=== PATIENT | female | born 1935 | race Two or more races ===

== ENCOUNTER → 2016-12-22 10:53 | Emergency (ER) | payer MEDICARE ==
[~2016-12-22 10:53] MED LIST: Albuterol/Ipratropium NEB.SOL* Albuterol 2.5 MG/Ipratropium 0.5 MG 3 ML INH ONE; Aspirin Low Dose CHEW TAB* 81 MG PO ONE; Iohexol 350* (CONTRAST) 500 ML MDV IV ONE; NS 0.9% 1000 ML* 1,000 ML IV ONE; methylPREDNISolone 125 MG* 2 ML VIAL IV ONE
--- NOTE | 2016-12-22 11:57 | RAD ---
INDICATION: Tachycardia. COMPARISON: Comparison is made with a prior CT of the chest from November 13, 2016 and prior chest x-ray studies from January 24, 2016 and October 05, 2016. TECHNIQUE: A portable view of the chest was obtained. FINDINGS: There is a multilead transvenous pacemaker present. The heart is within normal limits in size and unchanged. The lungs are hyperinflated. There is a mass at the left lung apex which is unchanged from the prior study. The lungs are otherwise clear. No pleural effusion is seen. IMPRESSION: 1. NO EVIDENCE FOR ACUTE FINDING. 2. MASS AT THE LEFT LUNG APEX, UNCHANGED.
[2016-12-22 12:03] LABS: Hematocrit 35 % (35-47); Hemoglobin 11.6 g/dl (12.0-16.0); Mean Corpuscular HGB Conc 33 g/dl (31-36); Mean Corpuscular Hemoglobin 29 pg (27-31); Mean Corpuscular Volume 86 fL (80-97); Mean Platelet Volume 7 um3 (7.4-10.4); Red Blood Count 4.04 10^6/ul (4.0-5.4); Red Cell Distribution Width 14 % (10.5-15); White Blood Count 9.1 10^3/ul (3.5-10.8)
[2016-12-22 12:25] LABS: Albumin 3.3 g/dL (3.2-5.2); BUN/Creatinine Ratio 30.8 (8-20); Calcium 9.2 mg/dL (8.6-10.3); EGFR African American 203.4 (>60); EGFR Non-African American 158.1 (>60); Globulin 3.3 g/dL (2-4); Potassium 3.7 mmol/L (3.5-5.0); Total Bilirubin 0.3 mg/dL (0.2-1.0); Total Protein 6.6 g/dL (6.4-8.9)
[2016-12-22 12:27] LABS: Troponin I 0.01 ng/mL (<0.04)
--- NOTE | 2016-12-22 13:36 | RAD ---
INDICATION: Shortness of breath, history of lung carcinoma. COMPARISON: Comparison is made with a prior CT of the chest from November 13, 2016. TECHNIQUE: A CT angiogram of the chest was performed with intravenous following intravenous injection of 60 ml of Omnipaque 350 nonionic contrast. Contiguous axial sections were obtained from the lung apices through the lung bases. Images were reconstructed in the coronal and sagittal planes. FINDINGS: There is relatively homogeneous opacification of the pulmonary arteries. No intraluminal filling defect or pulmonary embolism is seen. The heart is within normal limits in size. No pericardial effusion is present. The thoracic aorta is normal in caliber and demonstrates homogeneous contrast opacification. No significant enlarged mediastinal or hilar lymph nodes are seen. There is moderate centrilobular emphysematous change. There is a large mass present at the left lung apex which is increased slightly in size measuring 7.3 x 5.2 cm in size. This previously measured 6.5 x 5.2 cm in size. There are small dependent bilateral lower lobe infiltrates suggestive of subsegmental atelectasis. No pleural effusion is present. No significant focal osseous abnormality is seen. IMPRESSION: 1. NO EVIDENCE FOR PULMONARY METABOLISM. 2. LARGE LEFT UPPER LOBE MASS, SLIGHTLY INCREASED IN SIZE. 3. EMPHYSEMA.
[2016-12-22 14:01] VITALS: BP 133/105
--- NOTE | 2016-12-22 16:24 | CONSULT ---
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 PMH: Allergies/Medications Allergies/Adverse Reactions: Allergies Allergy/AdvReac Type Severity Reaction Status Date / Time shrimp Allergy Severe See Comment Uncoded 12/22/16 11:19 cipro Allergy Intermediate Nausea Uncoded 12/22/16 11:19 environmental Allergy Intermediate Congestion Uncoded 12/22/16 11:19 Results - Lab Results Lab Results: 12/22/16 12/22/16 12/22/16 11:51 11:51 11:51 WBC 9.1 RBC 4.04 Hgb 11.6 L Hct 35 MCV 86 MCH 29 MCHC 33 RDW 14 Plt Count 312 MPV 7 L Neut % (Auto) 79.0 Lymph % (Auto) 8.9 L Pope % (Auto) 8.0 Eos % (Auto) 3.6 Baso % (Auto) 0.5 Absolute Neuts (auto) 7.2 Absolute Lymphs (auto) 0.8 L Absolute Monos (auto) 0.7 Absolute Eos (auto) 0.3 Absolute Basos (auto) 0 Absolute Nucleated RBC 0 Nucleated RBC % 0 D-Dimer, Quantitative < 200 Sodium 139 Potassium 3.7 Chloride 100 L Carbon Dioxide 34 H Anion Gap 5 BUN 12 Creatinine 0.39 L Est GFR ( Amer) 203.4 Est GFR (Non-Af Amer) 158.1 BUN/Creatinine Ratio 30.8 H Glucose 148 H Lactic Acid Calcium 9.2 Total Bilirubin 0.30 AST 12 L ALT 7 Alkaline Phosphatase 81 Troponin I 0.01 Total Protein 6.6 Albumin 3.3 Globulin 3.3 Albumin/Globulin Ratio 1.0 12/22/16 12/22/16 11:51 14:16 WBC RBC Hgb Hct MCV MCH MCHC RDW Plt Count MPV Neut % (Auto) Lymph % (Auto) Pope % (Auto) Eos % (Auto) Baso % (Auto) Absolute Neuts (auto) Absolute Lymphs (auto) Absolute Monos (auto) Absolute Eos (auto) Absolute Basos (auto) Absolute Nucleated RBC Nucleated RBC % D-Dimer, Quantitative Sodium Potassium Chloride Carbon Dioxide Anion Gap BUN Creatinine Est GFR ( Amer) Est GFR (Non-Af Amer) BUN/Creatinine Ratio Glucose Lactic Acid 1.0 Calcium Total Bilirubin AST ALT Alkaline Phosphatase Troponin I 0.01 Total Protein Albumin Globulin Albumin/Globulin Ratio
--- NOTE | 2016-12-22 16:45 | PN ---
Progress Note - Progress Note Date of Service: 12/22/16 SOAP: Subjective: []Seen at request of ER MD, Dr. Meléndez. Known to our service d/t diagnosis of Lung cancer, stage IIA squamous cell carcionoma of the left upper lobe, in the fall of 2015. She was not a surgical candidate d/t DLCO of 31% and with node negative, locally advanced disease and relatively poor performance status she was not considered a candidate for concurrent or sequential chemotherapy. She received radiation 2500 cGy over 5 fractions, completed in 03/2016, with limitations secondary to overlying pacemaker. Since completing tx. she has done relatively well, however in October of this year she developed progressive SOB and was provided with a Z-pack for presumed pneumonia by her primary care physician. A subsequent CT scan on 11/13/[address] Chamberlain ([facility]) showed question of progression vs. radiation r/t changes and was given a script for Augmentin. Per Cristina she then had her pace maker interrogated on 11/26/2016 at which time she had extra beats and subsequently saw Dr. Chadwick where the tech "fixed something." Cristina reports ever since then she has felt worse with progressive worsening of her breathing. Approximately 10 days ago she developed left arm pain that she though was related to her cancer and with worsening became concerned for her heart therefore she presented to the ER. She has home O2 but has been very SOB and does everything to "stay at home." Home Meds: Atorvastatin* [Lipitor*] 40 mg PO DAILY 01/16/16 [History Confirmed 12/22/16] Ipratropium 0.5MG/2.5ML NEB* [Atrovent 0.5 MG NEB.GENI*] 1 dose INH QID PRN 01/15 [History Confirmed 12/22/16] Latanoprost 0.005% OPTH (NF) [Xalatan 0.005% OPTH (NF)] 1 drop BOTH EYES BEDTIME 01/16/16 [History Confirmed 12/22/16] Albuterol inh POWDER (NF) [Proair Respiclick] 2 puff INH Q4HR PRN 12/22/16 [ History Confirmed 12/22/16] Amoxicillin PO (*) [Amoxicillin 500 MG CAP*] 2,000 mg PO ONCE 12/22/16 [History Confirmed 12/22/16] Aspirin EC Low Dose* [Ecotrin EC Low Dose 81 MG*] 81 mg PO DAILY 12/22/16 [ History Confirmed 12/22/16] Dexamethasone TAB* [Decadron TAB*] 2 mg PO DAILY #60 tab 12/22/16 [Rx] LORazepam TAB(*) [Ativan 0.5 MG TAB (*)] 0.5 mg PO Q4H PRN #120 tab MDD 6 tabs 12/22/16 [Rx] Metoprolol Succinate XL TAB* [Toprol XL TAB*] 37.5 mg PO DAILY 12/22/16 [ History Confirmed 12/22/16] Morphine ORAL.CONC BULK BOT* [Roxanol ORAL.CONC Bottle*] 5 mg PO Q2HR PRN #30 ml MDD 12 doses 12/22/16 [Rx] Multiple Vitamins W/ Minerals [Ocuvite Eye Health Formul] 1 cap PO DAILY [History Confirmed 12/22/16] Omeprazole CAP* [Prilosec CAP* 20 MG] 20 mg PO DAILY PRN 12/22/16 [History Confirmed 12/22/16] amLODIPine TAB* [Norvasc 5 mg TAB*] 5 mg PO DAILY 12/22/16 [History Confirmed ] In the ER she recieved 1 neb. tx. and solumedrol 125 mg IV push which helped her amb. to the bathroom. Per her daughter Tsering this would "not have been possible at home." She also received 1 L NS and ASA. 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 Former diary hernandez. Objective: [] Vital Signs Temp Pulse Resp BP Pulse Ox 98.2 F 104 24 133/105 86 12/22/16 11:16 12/22/16 14:00 12/22/16 14:00 12/22/16 14:00 12/22/16 14:00 A&Ox3, EOMI, ESCALANTE HRR, SR on tele with rate in high 90s LS dim. bilat. with moderately labored breathing, use of accessory muscles Laboratory Results - last 24 hr 12/22/16 12/22/16 12/22/16 11:51 11:51 11:51 WBC 9.1 RBC 4.04 Hgb 11.6 L Hct 35 MCV 86 MCH 29 MCHC 33 RDW 14 Plt Count 312 MPV 7 L Neut % (Auto) 79.0 Lymph % (Auto) 8.[address] [place] % (Auto) 8.0 Eos % (Auto) 3.6 Baso % (Auto) 0.5 Absolute Neuts (auto) 7.2 Absolute Lymphs (auto) 0.8 L Absolute Monos (auto) 0.7 Absolute Eos (auto) 0.3 Absolute Basos (auto) 0 Absolute Nucleated RBC 0 Nucleated RBC % 0 D-Dimer, Quantitative < 200 Sodium 139 Potassium 3.7 Chloride 100 L Carbon Dioxide 34 H Anion Gap 5 BUN 12 Creatinine 0.39 L Est GFR ( Amer) 203.4 Est GFR (Non-Af Amer) 158.1 BUN/Creatinine Ratio 30.8 H Glucose 148 H Lactic Acid Calcium 9.2 Total Bilirubin 0.30 AST 12 L ALT 7 Alkaline Phosphatase 81 Troponin I 0.01 Total Protein 6.6 Albumin 3.3 Globulin 3.3 Albumin/Globulin Ratio 1.0 12/22/16 12/22/16 11:51 14:16 WBC RBC Hgb Hct MCV MCH MCHC RDW Plt Count MPV Neut % (Auto) Lymph % (Auto) [place] % (Auto) Eos % (Auto) Baso % (Auto) Absolute Neuts (auto) Absolute Lymphs (auto) Absolute Monos (auto) Absolute Eos (auto) Absolute Basos (auto) Absolute Nucleated RBC Nucleated RBC % D-Dimer, Quantitative Sodium Potassium Chloride Carbon Dioxide Anion Gap BUN Creatinine Est GFR ( Amer) Est GFR (Non-Af Amer) BUN/Creatinine Ratio Glucose Lactic Acid 1.0 Calcium Total Bilirubin AST ALT Alkaline Phosphatase Troponin I 0.01 Total Protein Albumin Globulin Albumin/Globulin Ratio CXR with left upper lob mass CT with contrast revealing increased size of left upper lobe (by approx. 1 cm) and bilat. atelectasis - compared to 11/13/16 scan. Reviewed by this display card writer at length Assessment: []81 yo female with significant COPD and locally advanced squamous cell carcinoma of the left upper lobe with progression on CT scan today. She has no evidence for infectious process (negative imaging and no leukocytosis) therefore I think ultimately her symptoms are a combination of COPD exacerbation and progressive disease. She does not want to be admitted and I think it is reasonable to manage her at home. Plan: []1. COPD exacerbation: resume advair however will change to generic as she was having difficulty with her med costs, will also try a small dose of PO dex 2. Lung Cancer: unlikely to benefit from further RT and she is not interested in pursuing systemic therapy, will refer to hospice. D/C home with morphine oral concentrate and ativan - reviewed use at length. 60 min spent with >50% face to face counseling
--- NOTE | 2016-12-27 11:59 | ED ---
Franko Kelley Alfonso scribed for Stefan Meléndez MD on 12/22/16 at 1225 . Palpitations / Dysrhythmia - HPI Summary HPI Summary: This patient is an 81 year old F presenting to [facility] accompanied by daughter with a chief complaint of racing palpitations since a few weeks ago. She had a pacemaker interrogation with adjustments 8/10 due to rapid rate. The patient rates the pain 0/10 in severity. Symptoms aggravated by exertion. Symptoms alleviated by rest. Patient reports SOB, productive cough, and left UE pain ( aggravated by touch and movement). Patient denies CP, back pain, neck pain, facial numbness, and LE numbness. She is currently on 3L NC O2. She denies PMHx of DVT and PE. PMHx includes lung cancer, COPD, and emphysema. - History of Current Complaint Chief Complaint: EDGeneral Time Seen by Provider: 12/22/16 11:25 Hx Obtained From: Patient Onset/Duration: Sudden Onset, Lasting Weeks, Still Present Timing: Constant Severity Initially: Moderate Severity Currently: Moderate Character: Fast Aggravating: Exertion Alleviating: Rest Associated Signs & Symptoms: Shortness of Breath - Allergy/Home Medications Allergies/Adverse Reactions: Allergies Allergy/AdvReac Type Severity Reaction Status Date / Time shrimp Allergy Severe See Comment Uncoded 12/22/16 11:19 cipro Allergy Intermediate Nausea Uncoded 12/22/16 11:19 environmental Allergy Intermediate Congestion Uncoded 12/22/16 11:19 Home Medications: Home Medications Albuterol inh POWDER (NF) [Proair Respiclick] 2 puff INH Q4HR PRN 12/22/16 [ History Confirmed 12/22/16] Aspirin EC Low Dose* [Ecotrin EC Low Dose 81 MG*] 81 mg PO DAILY 12/22/16 [ History Confirmed 12/22/16] Metoprolol Succinate XL TAB* [Toprol XL TAB*] 37.5 mg PO DAILY 12/22/16 [ History Confirmed 12/22/16] Multiple Vitamins W/ Minerals [Ocuvite Eye Health Formul] 1 cap PO DAILY [History Confirmed 12/22/16] Omeprazole CAP* [Prilosec CAP* 20 MG] 20 mg PO DAILY PRN 12/22/16 [History Confirmed 12/22/16] amLODIPine TAB* [Norvasc 5 mg TAB*] 5 mg PO DAILY 12/22/16 [History Confirmed ] PMH/Surg Hx/FS Hx/Imm Hx Endocrine/Hematology History: Denies: Hx Diabetes Cardiovascular History: Reports: Hx Pacemaker/ICD - PACEMAKER 15 YRS AGO (HAS HAD 5), FOLLOWED BY DR LOPEZ, Hx Peripheral Vascular Disease Denies: Hx Hypertension Respiratory History: Reports: Hx Chronic Obstructive Pulmonary Disease (COPD), Other Respiratory Problems/Disorders - MASS ON LEFT LUNG Denies: Hx Pulmonary Embolism GI History: Reports: Other GI Disorders - DIFFICULTY SWALLOWING MEATS AND BREAD , "GETS STUCK" History: Denies: Hx Dialysis, Hx Renal Disease Sensory History: Reports: Hx Cataracts - LENS IMPLANTS, Hx Contacts or Glasses - GLASSES Denies: Hx Hearing Aid Opthamlomology History: Reports: Hx Cataracts - LENS IMPLANTS, Hx Contacts or Glasses - GLASSES - Cancer History Cancer Type, Location and Year: new dx lung Hx Chemotherapy: No - Surgical History Surgery Procedure, Year, and Place: NERVE REPAIR LEFT HAND [place]. PACEMAKER X 5 1ST IN 2010 (3 AT [facility], 2 D[place] [facility] BILATERAL CATARACT EXTRACTION WITH IOL IMPLANT Hx Anesthesia Reactions: No Infectious Disease History: No Infectious Disease History: Denies: Traveled Outside the [place] in Last 30 Days - Family History Known Family History: Positive: Cardiac Disease - Social History Alcohol Use: None Substance Use Type: Reports: None Hx Tobacco Use: No Smoking Status (MU): Former Smoker Type: Cigarettes Amount Used/How Often: 1 1/2 PPD FOR 30 YRS Length of Time of Smoking/Using Tobacco: 30 YRS Have You Smoked in the Last Year: No Review of Systems Negative: Fever, Chills Negative: Erythema Negative: Sore Throat Positive: Palpitations. Negative: Chest Pain Positive: Shortness Of Breath, Cough Negative: Abdominal Pain, Vomiting, Nausea Negative: dysuria, hematuria Positive: Other - left UE pain (aggravated by touch and movement). Negative back pain, neck pain.. Negative: Myalgia, Edema Negative: Rash Neurological: Other - Negative dizziness, facial numbness, and LE numbness All Other Systems Reviewed And Are Negative: Yes Physical Exam Triage Information Reviewed: Yes Vital Signs On Initial Exam: Initial Vitals Temp Pulse Resp BP Pulse Ox 98.2 F 102 20 145/64 76 12/22/16 10:57 12/22/16 10:57 12/22/16 10:57 12/22/16 10:57 12/22/16 10:57 Vital Signs Reviewed: Yes Appearance: Positive: Well-Appearing, No Pain Distress, Well-Nourished Skin: Positive: Warm, Dry Head/Face: Positive: Normal Head/Face Inspection Eyes: Positive: Conjunctiva Clear ENT: Positive: Normal ENT inspection Neck: Positive: Other: - Musculoskeletal ROM normal neck. (-) JVD, (-) Stridor, (-) Tracheal deviation Lymph: (-) Cervical adenopathy Respiratory/Lung Sounds: Positive: Other - Effort normal. Decreased breath sounds. (-) Respiratory distress, (-) Wheezes, (-) Rales Cardiovascular: Positive: Other - Rhythm regular, rate normal, Heart sounds normal; Intact distal pulses; The pedal pulses are 2+ and symmetric. Radial pulses are 2+ and symmetric. (-) Murmur Abdomen Description: Positive: Other: - Soft, (-) Tenderness, (-) Distension, (- ) Guarding, (-) Rebound Musculoskeletal: Negative: Edema Left, Edema Right Neurological: Positive: Alert, Oriented to Person Place, Time Psychiatric: Positive: Affect/Mood Appropriate - Carmen Coma Scale Coma Scale Total: 15 Diagnostics - Vital Signs Vital Signs Temp Pulse Resp BP Pulse Ox 12/22/16 12:00 87 20 144/62 95 12/22/16 11:30 88 21 123/62 95 12/22/16 11:16 98.2 F 92 24 141/79 94 12/22/16 11:12 100 23 92 12/22/16 11:11 141/79 12/22/16 10:57 98.2 F 102 20 145/64 76 - Laboratory Lab Results: Lab Results 12/22/16 12/22/16 Range/Units 11:51 11:51 WBC 9.1 (3.5-10.8) 10^3/ul RBC 4.04 (4.0-5.4) 10^6/ul Hgb 11.6 L (12.0-16.0) g/dl Hct 35 (35-47) % MCV 86 (80-97) fL MCH 29 (27-31) pg MCHC 33 (31-36) g/dl RDW 14 (10.5-15) % Plt Count 312 (150-450) 10^3/ul MPV 7 L (7.4-10.4) um3 Neut % (Auto) 79.0 (38-83) % Lymph % (Auto) 8.9 L (25-47) % [place] % (Auto) 8.0 (1-9) % Eos % (Auto) 3.6 (0-6) % Baso % (Auto) 0.5 (0-2) % Absolute Neuts (auto) 7.2 (1.5-7.7) 10^3/ul Absolute Lymphs (auto) 0.8 L (1.0-4.8) 10^3/ul Absolute Monos (auto) 0.7 (0-0.8) 10^3/ul Absolute Eos (auto) 0.3 (0-0.6) 10^3/ul Absolute Basos (auto) 0 (0-0.2) 10^3/ul Absolute Nucleated RBC 0 10^3/ul Nucleated RBC % 0 D-Dimer, Quantitative < 200 (Less Than 230) ng/mL Result Diagrams: 12/22/16 11:51 12/22/16 11:51 Lab Statement: Any lab studies that have been ordered have been reviewed, and results considered in the medical decision making process. - Radiology CXR Radiology Interpretation Completed By: Radiologist - 1. NO EVIDENCE FOR ACUTE FINDING. 2. MASS AT THE LEFT LUNG APEX, UNCHANGED. ED physician has reviewed this radiology report and agrees. - CT CTA Chest CT Interpretation Completed By: Radiologist - 1. NO EVIDENCE FOR PULMONARY METABOLISM. 2. LARGE LEFT UPPER LOBE MASS, SLIGHTLY INCREASED IN SIZE. 3. EMPHYSEMA. ED physician has reviewed this radiology report and agrees. - EKG 1118 Cardiac Rate: NL - BPM 90 EKG Interpretation: Paced. No STEMI. Course/Dx - Course Assessment/Plan: This patient is an 81 year old F presenting to [facility] accompanied by daughter with a chief complaint of racing palpitations since a few weeks ago. She had a pacemaker interrogation with adjustments 8 due to rapid rate. The patient rates the pain 0/10 in severity. Symptoms aggravated by exertion. Symptoms alleviated by rest. Patient reports SOB, productive cough, and left UE pain (aggravated by touch and movement). Patient denies CP, back pain, neck pain, facial numbness, and LE numbness. She is currently on 3L NC O2. She denies PMHx of DVT and PE. PMHx includes lung cancer, COPD, and emphysema. An EKG reveals paced rhythm at 90 BPM. CXR reveals 1. NO EVIDENCE FOR ACUTE FINDING. 2. MASS AT THE LEFT LUNG APEX, UNCHANGED. ED physician has reviewed this radiology report and agrees. CTA Chest/Thorax reveals 1. NO EVIDENCE FOR PULMONARY METABOLISM. 2. LARGE LEFT UPPER LOBE MASS, SLIGHTLY INCREASED IN SIZE. 3. EMPHYSEMA. ED physician has reviewed this radiology report and agrees. Consulted Dr. Stein (oncologist) who will see the patient in the ED. Consulted Dr. Horton who agrees to admit. After oncology evaluated the patient in the ED, they recommended for discharge. Patient and daugther are also requesting discharge. The patient will be discharged home with follow up from oncology and PCP. The patient and daughter are agreeable with this plan. - Diagnoses Provider Diagnoses: Lung mass, COPD exacerbation - Physician Notifications Discussed Care Of Patient With: Anshul Stein Time Discussed With Above Provider: 14:18 Instructed by Provider To: Other - Consulted Dr. Stein (oncologist) who will see the patient in the ED. Consulted Dr. Horton who agrees to admit. Discharge - Discharge Plan Condition: Stable Disposition: HOME Prescriptions: Dexamethasone TAB* [Decadron TAB*] 2 mg PO DAILY #60 tab Fluticasone-Salmeterol [Fluticasone Propionate/SA 232-14 Mcg/Act] 1 inh INH BID #1 inhaler LORazepam TAB(*) [Ativan 0.5 MG TAB (*)] 0.5 mg PO Q4H PRN #120 tab MDD 6 tabs PRN Reason: Agitation/Anxiety/Insomnia Morphine ORAL.CONC BULK BOT* [Roxanol ORAL.CONC Bottle*] 5 mg PO Q2HR PRN #30 ml MDD 12 doses PRN Reason: pain/sob Patient Education Materials: COPD (Chronic Obstructive Pulmonary Disease) (ED) , Non-Small Cell Lung Cancer (ED) Referrals: Claudia Fitch MD [Primary Care Provider] - Alvina Bland MD [Medical Doctor] - The documentation as recorded by the Franko montano Alfonso accurately reflects the service I personally performed and the decisions made by , Stefan Meléndez MD.
== END | disposition home or self-care (01) ==
LOC: ED 10:53
DX: J44.1 Chronic obstructive pulmonary disease with (acute) exacerbation (principal); R91.8 Other nonspecific abnormal finding of lung field; Z86.718 Personal history of other venous thrombosis and embolism; Z79.01 Long term (current) use of anticoagulants; Z86.711 Personal history of pulmonary embolism; Z95.0 Presence of cardiac pacemaker; I73.9 Peripheral vascular disease, unspecified; Z87.891 Personal history of nicotine dependence; J45.901 Unspecified asthma with (acute) exacerbation
CPT/HCPCS: 36415; 71010; 71275; 80053; 83605; 84484; 85025; 85379; 87040; 93005; 96374; 96375; 99282; A9270-GY; J2930; Q9967